=== PATIENT | male | born 1950 | race Caucasian/White ===

== ENCOUNTER 2022-12-16 20:08 | Inpatient (IN) | payer OTHER ==
[~2022-12-16] VITALS: Ht 172.7 cm; Wt 74.8 kg
[2022-12-16] MEDS ORDERED: ALBUTEROL 0.083% 2.5 MG/3 ML NEBU INH ONE (20:25)
[2022-12-16] MEDS ORDERED: IPRATROPIUM 0.02% 0.5 MG/2.5 ML NEBU INH ONE (20:25)
[2022-12-16] MEDS ORDERED: methylPREDNISolone SS 125 MG/2 ML VIAL IVP ONE (20:25)
[2022-12-16] MEDS ORDERED: NITROGLYCERIN 0.4 MG TAB SL ONE (20:25)
[2022-12-16 20:29] VITALS: BP 156/98
--- NOTE | 2022-12-16 20:29 | NUR ---
FOUND PT IN BED 1 AFTER BEING BIBA FROM FACILITY WITH C/O CP AND SOB. NO REPORT RECEIVED. ATTACHED TO CM = A-FIB. [place] [facility] [place]
[2022-12-16] MEDS ORDERED: ASPIRIN 81 MG TAB.CHEW PO ONE (20:30)
--- NOTE | 2022-12-16 20:30 | NUR ---
PLACED ON BIPAP
[2022-12-16 20:54] VITALS: BP 184/89
[2022-12-16] MEDS ORDERED: FUROSEMIDE 40 MG/4 ML VIAL IVP ONE (20:55)
[2022-12-16] MEDS ORDERED: NITROGLYCERIN 50 MG/D5W PREMIX 250 ML IV ONE ×2 (21:05→21:08)
[2022-12-16 21:10] LABS: BASOPHILS # (AUTO) 0.1 K/uL (0.00-0.22); BASOPHILS % (AUTO) 0.6 % (0.0-2.0); EOSINOPHILS # (AUTO) 0.1 K/uL (0-0.4); EOSINOPHILS % (AUTO) 1.1 % (0.0-4.0); HEMATOCRIT 46.1 % (36-52); HEMOGLOBIN 14.8 g/dL (12.0-18.0); LYMPHOCYTES # (AUTO) 1.2 K/uL (2.0-11.5); LYMPHOCYTES % (AUTO) 11.1 % (20.5-51.1); MEAN CORPUSCULAR HEMOGLOBIN 29 pg (27-31); MEAN CORPUSCULAR HGB CONC 32 g/dL (33-37); MEAN CORPUSCULAR VOLUME 90.7 fL (80-94); MONOCYTES # (AUTO) 0.8 K/uL (0.8-1.0); MONOCYTES % (AUTO) 7.7 % (1.7-9.3); NEUTROPHILS # (AUTO) 8.8 K/uL (1.8-7.7); NEUTROPHILS % (AUTO) 79.5 % (42.2-75.2); PLATELET COUNT (AUTO) 218 K/uL (140-450); RED BLOOD CELL COUNT(AUTO) 5.08 MIL/uL (4.20-6.10); RED CELL DISTRIBUTION WIDTH 18.5 % (11.6-13.7)
[2022-12-16 22:01] LABS: PROTHROMBIN TIME 11.5 secs (10.8-13.4)
--- NOTE | 2022-12-16 22:03 | NUR ---
URINL GIVEN . PT SAYS HE IS STARTING TO FEEL A LITTLE BETTER
[2022-12-16 22:05] LABS: ALBUMIN 3.7 g/dL (3.4-5.0); ANION GAP 16.2 (8-16); ASPARTATE AMINOTRANSFERASE 14 U/L (15-37); CARBON DIOXIDE 20.4 mmol/L (21-32); CHLORIDE 99 mmol/L (98-107); CREATININE 3.4 mg/dL (0.6-1.3); GLUCOSE 209 mg/dL (74-106); POTASSIUM 5.6 mmol/L (3.5-5.1); SODIUM SERUM 130 mmol/L (136-145); TOTAL BILIRUBIN 0.7 mg/dL (0.0-1.0); UREA NITROGEN, BLOOD 55 mg/dL (7-18)
[2022-12-16] MEDS ORDERED: hePARIN / DEXT 5% PREMIX 250 ML IV SCH (22:20)
[2022-12-16] MEDS ORDERED: HEPARIN PER PHARMACY MC PRN (22:20)
[2022-12-16] MEDS ORDERED: DOCUSATE SODIUM 100 MG GELCAP PO PRN (22:30)
[2022-12-16] MEDS ORDERED: POTASSIUM CHLORIDE 10 MEQ TABER PO PRN (22:30)
[2022-12-16] MEDS ORDERED: ACETAMINOPHEN 325 MG TAB PO PRN (22:30)
[2022-12-16] MEDS ORDERED: ZOLPIDEM 5 MG TAB PO PRN (22:30)
[2022-12-16] MEDS ORDERED: ONDANSETRON 4 MG/2 ML VIAL IM/IVP PRN (22:30)
[2022-12-16] MEDS ORDERED: hydrALAZINE 20 MG/ML VIAL IVP PRN (22:35)
--- NOTE | 2022-12-16 22:43 | NUR ---
ADDITIONAL IV ESTABLISHED LEFT WIST. PT CHANGED AND POSITIONED FOR COMFORT
[2022-12-16] MEDS ORDERED: ALBUTEROL SULFATE/IPRATROPIU 3 ML SOL IH PRN (22:50)
--- NOTE | 2022-12-16 23:00 | NUR ---
NTG DECREASED TO 5MCG
[2022-12-16 23:16] LABS: CHOL/HDL RATIO 2.2 (1-4.5); FREE T4 (FREE THYROXINE) 1.07 ng/dL (0.76-1.46); MAGNESIUM 2.2 mg/dL (1.8-2.4); PHOSPHORUS 4.9 mg/dL (2.5-4.9); THYROID STIMULATING HORMONE 0.87 uIU/mL (0.34-3.74)
[2022-12-16] MEDS: NACL 0.9% 1,000 ML IV SCH (23:23)
[2022-12-17 00:34] VITALS: BP 92/47
--- NOTE | 2022-12-17 01:00 | NUR ---
RESTING QUIETLY WITH EYES CLOSED
--- NOTE | 2022-12-17 03:00 | NUR ---
AWAKE, ASSISTED WITH POSITIONING FOR COMFORT
[2022-12-17 03:50] VITALS: BP 119/71
--- NOTE | 2022-12-17 05:00 | NUR ---
Patient appears to be resting comfortably in bed. Vital Signs within normal limits. Respirations even and unlabored.
[2022-12-17 05:57] LABS: BASOPHILS % (AUTO) 0.1 % (0.0-2.0); HEMATOCRIT 41.4 % (36-52); HEMOGLOBIN 13.3 g/dL (12.0-18.0); LYMPHOCYTES # (AUTO) 0.5 K/uL (2.0-11.5); LYMPHOCYTES % (AUTO) 4.2 % (20.5-51.1); MEAN CORPUSCULAR HEMOGLOBIN 29 pg (27-31); MEAN CORPUSCULAR HGB CONC 32 g/dL (33-37); MEAN CORPUSCULAR VOLUME 89.2 fL (80-94); MONOCYTES # (AUTO) 0.5 K/uL (0.8-1.0); MONOCYTES % (AUTO) 3.8 % (1.7-9.3); NEUTROPHILS # (AUTO) 11.7 K/uL (1.8-7.7); NEUTROPHILS % (AUTO) 91.9 % (42.2-75.2); PLATELET COUNT (AUTO) 143 K/uL (140-450); RED BLOOD CELL COUNT(AUTO) 4.64 MIL/uL (4.20-6.10); RED CELL DISTRIBUTION WIDTH 18.1 % (11.6-13.7); WHITE BLOOD COUNT (AUTO) 12.8 K/uL (4.8-10.8)
[2022-12-17 06:04] LABS: ANION GAP 19.7 (8-16); CARBON DIOXIDE 18.2 mmol/L (21-32); CHLORIDE 97 mmol/L (98-107); CREATININE 3.4 mg/dL (0.6-1.3); GLUCOSE 173 mg/dL (74-106); POTASSIUM 4.9 mmol/L (3.5-5.1); SODIUM SERUM 130 mmol/L (136-145)
[2022-12-17 06:09] LABS: UREA NITROGEN, BLOOD 61 mg/dL (7-18)
--- NOTE | 2022-12-17 06:30 | NUR ---
AWAKE CONTINTINUES TO STATE THAT HE FEELS BETTER
[2022-12-17 06:50] VITALS: BP 128/44
--- NOTE | 2022-12-17 06:50 | NUR ---
PT FOUND ASLEEP ON BiPAP SETTINGS OF 18/10, RATE 14, O2 30%. PT WAS BREATHING 17 BPM, PULLING VOLUMES OF 510. WILL CONTINUE TO MONITOR PT.
[2022-12-17] MEDS: ALBUTEROL SULFATE/IPRATROPIU 3 ML SOL IH SCH ×3 (07:00→22:42)
[2022-12-17 08:57] LABS: APPEARANCE,URINE CLEAR (CLEAR); BILIRUBIN,URINE NEGATIVE (NEGATIVE); BLOOD, URINE TRACE-I (NEGATIVE); COLOR,URINE YELLOW (YELLOW); LEUKOCYTE ESTERASE ,URINE NEGATIVE (NEGATIVE); NITRITE, URINE NEGATIVE (NEGATIVE); PH,URINE 5.5 (5.0-9.0); UGLUCOSE 1+ (NEGATIVE)
[2022-12-17] MEDS: PANTOPRAZOLE 40 MG TABEC PO SCH (09:00)
[2022-12-17] MEDS: FUROSEMIDE 40 MG/4 ML VIAL IVP SCH ×2 (09:00→21:40)
[2022-12-17 09:02] LABS: PROTHROMBIN TIME 11.2 secs (10.8-13.4)
[2022-12-17 09:14] LABS: RBC,URINE 0-5 /HPF (0-5); WBC,URINE 0-5 /HPF (0-5)
--- NOTE | 2022-12-17 10:06 | NUR ---
MD ALARCON AT BEDSIDE FOR EVALUATION
--- NOTE | 2022-12-17 10:15 | NUR ---
AWAKE ALERT X 4, ATE BREAKFAST 75 % WITH FLUIDS. DENIES CP/ SOB, TOLERATING NASAL CANNULA O2 WHILE EATING, BACK ON BIPAP WHEN DONE. USES URINAL TO VOID URINE. SON PEDRO UPDATED OF STATUS, WAITING FOR A HOSPITAL BED
[2022-12-17] MEDS ORDERED: HEPARIN PER PHARMACY MC PRN (12:50)
--- NOTE | 2022-12-17 14:27 | NUR ---
DC PLANNING ASSESSMENT COMPLETE PLEASE REFER TO ASSESSMENT FOR ADDITIONAL DETAILS SW UNABLE TO MAKE IT TO ED THEREFORE COLLAT INFO GATHERED FROM PTS SON, PEDRO. PT IS 72 YR OLD MALE ADMITTED TO [facility] FROM HOME WITH DX OF CHF EXACERBATION, NSTEMI. PT HAS PAST MEDICAL HX OF CHF, DIABETES, CKD, COPD, CAD, AND HYPERLIPIDEMIA. PT IS REPORTED TO BE INDEPENDENT IN ALL ACTIVITIES, NO USE OF DME REPORTED. PT COMPLETES ALL ADLS INDEPENDENTLY. 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 PROVIDED FAMILY WITH CONTACT INFO SHOULD QUESTIONS ARISE. PEDRO REPORTS TENTATIVE DC PLAN IS FOR PT TO RETURN HOME WITH FAMILY PROVIDING TRANSPORTATION, WHEN PT IS MEDICALLY STABLE. Addendum: 12/17/22 at 1429 by Juan Heck SS Amended: Links added.
--- NOTE | 2022-12-17 14:53 | NUR ---
PATIENT HAS BEEN SCREENED AND CATEGORIZED MODERATE NUTRITION RISK. PATIENT WILL BE SEEN WITHIN 3-5 DAYS OF ADMISSION. [address]
[2022-12-17] MEDS: hePARIN / DEXT 5% PREMIX 250 ML IV SCH ×2 (15:12→21:53)
--- NOTE | 2022-12-17 17:30 | NUR ---
REPORT RECEIVED FROM ER NURSE, LAVELL. PT A/O X4. ABLE TO MAKE NEEDS KNOWN. SOB ON EXERTION. ON 4L NC WITH O2 @ 94%. CARDIAC/RENAL DIET. LAST BM REPORTED BY PT 12/15/22. HEPARIN DRIP @ 9ML/HR ON LAC #20. LH #20 SL. DENIES CHEST PAIN. NEEDS ALL MET AT THIS TIME. ALL SAFETY MEASURES IN PLACE.
--- NOTE | 2022-12-17 17:42 | NUR ---
Patient will be admitted to care of DR Faby ALARCON. Admited to TELE. Will go to room 19B. Belongings list completed. Report to LEORA.
[2022-12-17 17:44] VITALS: BP 100/76
--- NOTE | 2022-12-17 18:19 | NUR ---
SPOKE WITH SON (PEDRO KAPLAN) AND HE STATES HE WILL BRING PT'S MEDICATION LIST AND WILL VISIT PT TODAY. ALL QUESTIONS ANSWERED. ROOM NUMBER GIVEN TO PT'S SON.
[2022-12-17] MEDS: guaiFENesin DM 200/20 MG-10 ML 10 ML UDC PO PRN (18:26)
--- NOTE | 2022-12-17 18:27 | NUR ---
PRN COUGH MEDICATION GIVEN. PT WITH NON-PRODUCTIVE COUGH. HOB ELEVATED HIGH FOWLERS. DENIES PAIN. NEEDS ALL MET AT THIS TIME. ALL SAFETY MEASURES IN PLACE.
--- NOTE | 2022-12-17 19:30 | NUR ---
REPORT RECEIVED FROM DAY NURSE FOR CONTINUITY OF CARE .PT A/O X4. ABLE TO MAKE NEEDS KNOWN.SON AT BEDSIDE. SOB ON EXERTION. ON 4L NC WITH O2 @ 98%. CARDIAC/RENAL DIET. HEPARIN DRIP @ 9ML/HR ON LAC #20. LH #20 SL.SKIN WARM, DRY AND INTACT. DENIES CHEST PAIN AT THIS TIME. POC DISCUSSED. ALL SAFETY MEASURES IN PLACE. CALL LIGHT WITHIN REACH. WILL CONTINUE TO MONITOR.
[2022-12-17 20:00] VITALS: BP 164/60
--- NOTE | 2022-12-17 20:12 | NUR ---
RECEIVED CALL FROM LAB FOR PTT RESULT. 112.7. WILL ADJUST HEPARIN DRIP PER PROTOCOL.
[2022-12-17] MEDS ORDERED: ALLO100T21 PO (20:33)
[2022-12-17] MEDS ORDERED: CLOP75TA55 PO (20:33)
[2022-12-17] MEDS ORDERED: HYDR-1098 PO (20:33)
[2022-12-17] MEDS ORDERED: LIP80 PO (20:33)
[2022-12-17] MEDS ORDERED: FAMO-90 PO (20:33)
[2022-12-17] MEDS ORDERED: NITR0.4T2 SL (20:33)
[2022-12-17] MEDS ORDERED: FURO-572 PO (20:33)
[2022-12-17] MEDS ORDERED: CARV25TA PO (20:33)
[2022-12-17] MEDS ORDERED: DAPA10TA PO (20:33)
[2022-12-17] MEDS ORDERED: ASPI-1822 PO (20:33)
[2022-12-17] MEDS ORDERED: CETI10TA70 PO (20:33)
[2022-12-17] MEDS: NACL 0.9% 1,000 ML IV SCH (23:17)
[2022-12-18] VITALS: BP 165/58
--- NOTE | 2022-12-18 00:49 | NUR ---
BP RECHECK 141/57. WILL CONTINUE TO MONITOR.
--- NOTE | 2022-12-18 03:52 | NUR ---
BLOOD DRAWN FOR PTT.
[2022-12-18 04:00] VITALS: BP 160/63
[2022-12-18 05:04] LABS: HEMATOCRIT 38.7 % (36-52); HEMOGLOBIN 12.7 g/dL (12.0-18.0); MEAN CORPUSCULAR HEMOGLOBIN 29 pg (27-31); MEAN CORPUSCULAR HGB CONC 33 g/dL (33-37); MEAN CORPUSCULAR VOLUME 87.7 fL (80-94); PLATELET COUNT (AUTO) 148 K/uL (140-450); RED BLOOD CELL COUNT(AUTO) 4.41 MIL/uL (4.20-6.10); RED CELL DISTRIBUTION WIDTH 17.8 % (11.6-13.7); WHITE BLOOD COUNT (AUTO) 17.8 K/uL (4.8-10.8)
--- NOTE | 2022-12-18 05:20 | NUR ---
FOLLOWED UP WITH LAB REGARDING PTT RESULT. THEY SAID ARE STILL RUNNING THE BLOOD
--- NOTE | 2022-12-18 06:19 | NUR ---
PTT RESULT 69.7 HEPARIN DRIP NO CHANGE PER PHARMACY PROTOCOL.
[2022-12-18 06:20] LABS: ANION GAP 21.8 (8-16); CARBON DIOXIDE 17.7 mmol/L (21-32); CHLORIDE 102 mmol/L (98-107); CREATININE 3.3 mg/dL (0.6-1.3); GLUCOSE 162 mg/dL (74-106); POTASSIUM 4.5 mmol/L (3.5-5.1); SODIUM SERUM 137 mmol/L (136-145)
[2022-12-18] MEDS: hePARIN / DEXT 5% PREMIX 250 ML IV SCH (06:24)
[2022-12-18 06:38] LABS: UREA NITROGEN, BLOOD 76 mg/dL (7-18)
--- NOTE | 2022-12-18 07:19 | NUR ---
PT IS STABLE. NO ACUTE EVENTS THROUGHOUT THE NIGHT. NO S/SX OF DISTRESS AT THE MOMENT. ALL NEEDS MET. ALL PRECAUTIONS IN PLACE. CALL LIGHT WITHIN REACH. WILL ENDORSE TO DAY SHIFT RN.
[2022-12-18 07:23] LABS: LYMPHOCYTES % (MANUAL) 2 % (20-46); MONOCYTES % (MANUAL) 7 % (5-12)
[2022-12-18 08:00] VITALS: BP 133/67
[2022-12-18] MEDS: ALBUTEROL SULFATE/IPRATROPIU 3 ML SOL IH SCH ×2 (08:02→14:07)
[2022-12-18 08:07] LABS: T4 (THYROXINE) 4.7 ug/dL (4.5-12.0)
[2022-12-18] MEDS: guaiFENesin DM 200/20 MG-10 ML 10 ML UDC PO PRN ×2 (11:48→18:18)
[2022-12-18] MEDS: FUROSEMIDE 40 MG/4 ML VIAL IVP SCH ×2 (11:49→20:22)
[2022-12-18] MEDS: ECOTRIN 81 MG TABEC PO SCH (11:49)
[2022-12-18] MEDS: PANTOPRAZOLE 40 MG TABEC PO SCH (11:49)
[2022-12-18] MEDS: ATORVASTATIN 80 MG TAB PO SCH (11:50)
[2022-12-18] MEDS: HYDROcodone/APAP 7.5/325 MG 1 TAB PO PRN (11:50)
[2022-12-18 12:00] VITALS: BP 135/80
[2022-12-18] MEDS ORDERED: DEXTROSE 50% 50 ML SYR IVP PRN (12:10)
[2022-12-18] MEDS ORDERED: INSULIN LISPRO SLIDING SCALE 100 UNITS/ML VIAL SUBQ PRN (12:10)
[2022-12-18 16:00] VITALS: BP 109/60
[2022-12-18] MEDS: BLOOD GLUCOSE MONITORING 1 DEV DEV FS SCH ×2 (17:25→20:12)
[2022-12-18] MEDS: hydrALAZINE 25 MG TAB PO SCH (18:18)
--- NOTE | 2022-12-18 19:20 | NUR ---
RECEIVED PATIENT LYING ON THE BED, WATCHING TV, PATIENT IS AWAKE, ALERT AND ORIENTED, DENIES PAIN, NO SIGNS OF DISTRESS NOTED, CALL LIGHT WITHIN REACH.
[2022-12-18 20:00] VITALS: BP 145/56
--- NOTE | 2022-12-18 20:22 | NUR ---
SCHEDULED MEDICATIONS GIVEN ORDERED. BLOOD SUGAR 187 MG/DL, 2 U INSULIN GIVEN PER SLIDING SCALE. ALL SAFETY MEASURES IN PLACE.
[2022-12-18] MEDS: NACL 0.9% 1,000 ML IV SCH (22:30)
[2022-12-19] VITALS: BP 141/54
--- NOTE | 2022-12-19 00:30 | NUR ---
VITALS T 98.2, P 70, BP 141/54, RESP 16, O2 SATS 94%. PATIENT IS ASLEEP, BREATHING EVEN AND NON LABORED, NO SIGNS OF PAIN/DISCOMFORT NOTED. HEPARIN INFUSING @700 UNITS/HR ON LEFT HAND IV SITE. ALL SAFETY MEASURES MAINTAINED.
--- NOTE | 2022-12-19 03:30 | NUR ---
PATIENT IS AWAKE, IS ON HIS PHONE, PATIENT DENIES PAIN, DENIES SOB. URINAL EMPTIED. CALL LIGHT WITHIN REACH.
[2022-12-19 04:00] VITALS: BP 159/66
--- NOTE | 2022-12-19 06:30 | NUR ---
BLOOD SUGAR IS 117 MG/DL, NO INSULIN COVERAGE NEEDED.
[2022-12-19] MEDS: BLOOD GLUCOSE MONITORING 1 DEV DEV FS SCH ×4 (06:34→21:20)
[2022-12-19 06:38] LABS: ANION GAP 16.6 (8-16); CARBON DIOXIDE 22.4 mmol/L (21-32); CHLORIDE 102 mmol/L (98-107); GLUCOSE 126 mg/dL (74-106); SODIUM SERUM 137 mmol/L (136-145)
[2022-12-19 06:42] LABS: UREA NITROGEN, BLOOD 81 mg/dL (7-18)
[2022-12-19 07:02] LABS: BASOPHILS % (AUTO) 0.1 % (0.0-2.0); HEMATOCRIT 37.4 % (36-52); HEMOGLOBIN 12.2 g/dL (12.0-18.0); LYMPHOCYTES # (AUTO) 0.6 K/uL (2.0-11.5); LYMPHOCYTES % (AUTO) 3.8 % (20.5-51.1); MEAN CORPUSCULAR HEMOGLOBIN 29 pg (27-31); MEAN CORPUSCULAR HGB CONC 33 g/dL (33-37); MEAN CORPUSCULAR VOLUME 88.2 fL (80-94); MONOCYTES # (AUTO) 0.8 K/uL (0.8-1.0); MONOCYTES % (AUTO) 5.4 % (1.7-9.3); NEUTROPHILS # (AUTO) 13.2 K/uL (1.8-7.7); NEUTROPHILS % (AUTO) 90.7 % (42.2-75.2); PLATELET COUNT (AUTO) 163 K/uL (140-450); RED BLOOD CELL COUNT(AUTO) 4.24 MIL/uL (4.20-6.10); WHITE BLOOD COUNT (AUTO) 14.6 K/uL (4.8-10.8)
[2022-12-19] MEDS: ALBUTEROL SULFATE/IPRATROPIU 3 ML SOL IH SCH ×3 (07:04→20:31)
[2022-12-19 08:00] VITALS: BP 169/64
[2022-12-19] MEDS: hydrALAZINE 25 MG TAB PO SCH (09:32)
[2022-12-19] MEDS: ATORVASTATIN 80 MG TAB PO SCH (09:32)
[2022-12-19] MEDS: ECOTRIN 81 MG TABEC PO SCH (09:32)
[2022-12-19] MEDS: guaiFENesin DM 200/20 MG-10 ML 10 ML UDC PO PRN (09:33)
[2022-12-19] MEDS: PANTOPRAZOLE 40 MG TABEC PO SCH (09:33)
[2022-12-19] MEDS: HYDROcodone/APAP 7.5/325 MG 1 TAB PO PRN (09:33)
[2022-12-19] MEDS: FUROSEMIDE 40 MG/4 ML VIAL IVP SCH ×2 (09:33→21:02)
[2022-12-19 12:00] VITALS: BP 129/60
[2022-12-19 16:00] VITALS: BP 133/71
--- NOTE | 2022-12-19 19:15 | NUR ---
RECEIVED PATIENT LYING ON THE BED, IS AWAKE, ALERT AND ORIENTED, PATIENT DENIES PAIN, NO SOB NOTED. CALL LIGHT WITHIN REACH.
[2022-12-19 20:00] VITALS: BP 122/66
[2022-12-19] MEDS: carvediloL 6.25 MG TAB PO SCH (21:05)
--- NOTE | 2022-12-19 21:20 | NUR ---
PATIENT'S BLOOD SUGAR IS 131 MG/DL, NO INSULIN COVERAGE NEEDED. ALL SCHEDULED MEDICATIONS GIVEN ORDERED.
--- NOTE | 2022-12-19 22:11 | NUR ---
PATIENT'S LATEST PTT IS 60.8, NEXT PTT IS SCHEDULED @0250.
[2022-12-19] MEDS: NACL 0.9% 1,000 ML IV SCH (22:30)
[2022-12-20] VITALS: BP 123/54
--- NOTE | 2022-12-20 00:26 | NUR ---
VITALS T 98.2, P 85, BP 123/54, RESP 18 AND O2 SATS 95% ON ROOM AIR.
[2022-12-20] MEDS: hePARIN / DEXT 5% PREMIX 250 ML IV SCH (01:06)
--- NOTE | 2022-12-20 01:51 | NUR ---
RECEIVED PT SLEEPING, NO SIGNS OF DISTRESS, HEPARIN DRIP INFUSING WELL AT 800 UNITS/H, DENIES CHEST PAIN OR SOB, CALL LIGHT WITHIN REACH.
--- NOTE | 2022-12-20 02:42 | NUR ---
VOIDED FREELY USING URINAL, DENIES ANY PAIN, WARM BLANKET PROVIDED PER REQUEST, ALL NEEDS ATTENDED.
[2022-12-20] MEDS: guaiFENesin DM 200/20 MG-10 ML 10 ML UDC PO PRN (03:34)
--- NOTE | 2022-12-20 03:40 | NUR ---
PT AWAKE WITH INTERMITTENT COUGH, VITAL SIGNS STABLE, CONTROLLED AFIB WITH BBB ON TELE, DENIES CHEST PAIN AND NO SOB NOTED, COUGH MEDICATION GIVEN PRN, MONITORED CLOSELY.
[2022-12-20 04:00] VITALS: BP 106/50
[2022-12-20 04:15] LABS: BASOPHILS % (AUTO) 0.1 % (0.0-2.0); HEMATOCRIT 39.7 % (36-52); HEMOGLOBIN 12.7 g/dL (12.0-18.0); LYMPHOCYTES # (AUTO) 0.7 K/uL (2.0-11.5); MEAN CORPUSCULAR HEMOGLOBIN 29 pg (27-31); MEAN CORPUSCULAR HGB CONC 32 g/dL (33-37); MEAN CORPUSCULAR VOLUME 89.1 fL (80-94); MONOCYTES % (AUTO) 7.1 % (1.7-9.3); NEUTROPHILS # (AUTO) 12.2 K/uL (1.8-7.7); NEUTROPHILS % (AUTO) 87.8 % (42.2-75.2); PLATELET COUNT (AUTO) 204 K/uL (140-450); RED BLOOD CELL COUNT(AUTO) 4.46 MIL/uL (4.20-6.10); RED CELL DISTRIBUTION WIDTH 17.6 % (11.6-13.7); WHITE BLOOD COUNT (AUTO) 13.9 K/uL (4.8-10.8)
[2022-12-20 04:28] LABS: ANION GAP 13.4 (8-16); CARBON DIOXIDE 24.6 mmol/L (21-32); CHLORIDE 98 mmol/L (98-107); CREATININE 2.5 mg/dL (0.6-1.3); GLUCOSE 131 mg/dL (74-106); SODIUM SERUM 132 mmol/L (136-145)
[2022-12-20 04:29] LABS: UREA NITROGEN, BLOOD 72 mg/dL (7-18)
--- NOTE | 2022-12-20 06:00 | NUR ---
PT SLEEPING, EASILY AROUSABLE, BLOOD SUGAR CHECKED WITH 100 RESULT, NO COVERAGE NEEDED, HEPARIN DRIP INFUSING WELL AT 800 UNITS/H, MONITORED CLOSELY.
[2022-12-20] MEDS: BLOOD GLUCOSE MONITORING 1 DEV DEV FS SCH ×2 (06:42→11:35)
--- NOTE | 2022-12-20 07:35 | NUR ---
PT AWAKE, NO SIGNS OF DISTRESS, BEDSIDE REPORT GIVEN TO RN ADZE FOR CONTINUITY OF CARE.
[2022-12-20 08:00] VITALS: BP 107/62
[2022-12-20] MEDS: ALBUTEROL SULFATE/IPRATROPIU 3 ML SOL IH SCH ×2 (08:37→13:00)
[2022-12-20] MEDS: hydrALAZINE 25 MG TAB PO SCH ×2 (09:00→13:00)
[2022-12-20] MEDS: carvediloL 6.25 MG TAB PO SCH (09:35)
[2022-12-20] MEDS: ATORVASTATIN 80 MG TAB PO SCH (09:35)
[2022-12-20] MEDS: ECOTRIN 81 MG TABEC PO SCH (09:35)
[2022-12-20] MEDS: FUROSEMIDE 40 MG/4 ML VIAL IVP SCH (09:35)
[2022-12-20] MEDS: PANTOPRAZOLE 40 MG TABEC PO SCH (09:36)
[2022-12-20 12:45] VITALS: BP 106/50
--- NOTE | 2022-12-20 13:56 | NUR ---
ASKED PT IF HE WOULD LIKE HIS TX BEFORE LEAVING PT STATED HE IS JUST WAITING FOR HIS SON TO PICK HIM UP. NO DISTRESS NOTED .
--- NOTE | 2022-12-20 14:01 | NUR ---
patient discharged home accompanied by son. personal belongings was sent with patient. discharge instructions given. IV access removed. all questions were answered. stable upon discharge.
--- NOTE | 2022-12-23 08:48 | NUR ---
CALLED [facility] LOCATED AT [address] [facility] [address] SPOKE WITH WILFRID WHO WAS ABLE TO HELP ME MAKE AN APPOINTMENT FOR PT ON 12/29/2022 AT 0900 . CALL SON PEDRO TO INFORM HIM OF THE ABOVE INFORMATION.
== END 2022-12-20 14:09 | disposition home or self-care (01) | DRG 280 ==
LOC: MED 20:08 → MTU 22:26
PROVIDERS: ADMIT Family Medicine; ATTEND Family Medicine
PROC: 5A09357 Assistance with Respiratory Ventilation, Less than 24 Consecutive Hours, Continuous Positive Airway Pressure (ICD-10-PCS; principal; 2022-12-16)
PROC: 5A09357 Assistance with Respiratory Ventilation, Less than 24 Consecutive Hours, Continuous Positive Airway Pressure (ICD-10-PCS; 2022-12-17)
DX: I21.4 Non-ST elevation (NSTEMI) myocardial infarction (principal); I50.43 Acute on chronic combined systolic (congestive) and diastolic (congestive) heart failure; N17.0 Acute kidney failure with tubular necrosis; J96.01 Acute respiratory failure with hypoxia; J18.9 Pneumonia, unspecified organism; E87.1 Hypo-osmolality and hyponatremia; J44.0 Chronic obstructive pulmonary disease with (acute) lower respiratory infection; I13.0 Hypertensive heart and chronic kidney disease with heart failure and stage 1 through stage 4 chronic kidney disease, or unspecified chronic kidney disease; E78.5 Hyperlipidemia, unspecified; F17.210 Nicotine dependence, cigarettes, uncomplicated; Z20.822 Contact with and (suspected) exposure to COVID-19; I25.10 Atherosclerotic heart disease of native coronary artery without angina pectoris; E11.65 Type 2 diabetes mellitus with hyperglycemia; E87.5 Hyperkalemia; D72.829 Elevated white blood cell count, unspecified; N18.9 Chronic kidney disease, unspecified; E11.22 Type 2 diabetes mellitus with diabetic chronic kidney disease; Z95.1 Presence of aortocoronary bypass graft
CPT/HCPCS: 36415; 36600; 71045; 76770; 80048; 80053; 81001; 82150; 82803; 82948; 83036; 83690; 83735; 83880; 84100; 84436; 84439; 84443; 84479; 84484; 85025; 85610; 85730; 87040; 87086; 93005; 94640; 94660; 96374; 96375; 99291; J0360; J1644; J1815; J1940; J2405; J2930; J3490; J7613; J7644; Q0092